=== PATIENT | female | born 1950 | race Caucasian/White ===

== ENCOUNTER → 2017-11-30 | Outpatient (CLI) | payer MEDICARE, BC | LOC: M.ULTRA 15:25 | DX: M79.605 Pain in left leg (principal); M79.89 Other specified soft tissue disorders; L53.9 Erythematous condition, unspecified; R60.0 Localized edema ==

== ENCOUNTER → 2018-09-22 | Outpatient (CLI) | payer MEDICARE, BC | LOC: M.RAD 13:53 | DX: Z12.31 Encounter for screening mammogram for malignant neoplasm of breast (principal); Z78.0 Asymptomatic menopausal state; M85.89 Other specified disorders of bone density and structure, multiple sites ==

== ENCOUNTER → 2018-09-22 | Outpatient (CLI) | payer OTHER | LOC: M.CT 13:45 | DX: Z13.6 Encounter for screening for cardiovascular disorders (principal); I25.10 Atherosclerotic heart disease of native coronary artery without angina pectoris ==

== ENCOUNTER → 2019-04-13 | Outpatient (CLI) | payer MEDICARE, BC | LOC: M.ULTRA 17:00 | DX: I82.812 Embolism and thrombosis of superficial veins of left lower extremity (principal); Z91.011 Allergy to milk products; Z88.8 Allergy status to other drugs, medicaments and biological substances ==

== ENCOUNTER → 2020-09-12 | Outpatient (CLI) | payer MEDICARE, BC ==
--- NOTE | 2020-09-16 17:33 | CARDNUC ---
[place] [address] CARDIAC NUCLEAR IMAGING REPORT Name: CARLO STEWART Room: [facility]#: [id number] Admission: 09/12/20 Attend Phys: aMrlon Caldera, Discharge: Date of : 52 Date of Service: 09/16/20 1733 Report #: [id number] THIS REPORT FOR: cc: Liss Martínez Linda J. DO Liston, Michael J. MD [facility] ~ APPROVED REPORT Imaging Protocol: Rest Tc-99m/Stress Tc-99m 1 day Study performed: 09/12/2020 11:50:21 Indication: Chest pain, FONTANA, fatique, edema, palpitations. Patient Location: Out-Patient Stress Tech: Monique Barahona Stress Nurse: Salud Puentes RN NM Tech:CHRISSY Schwab Ht: 5 ft 5 in Wt: 221 lbs BSA: 2.06 m2 BMI: 36.77 Medical History Medical History: CAD non obstructive, Chest pain, FONTANA, Edema, increased BMI, Insomnia, IVÁN, fatigue, palpitations, polyneuropathy, DM II-Insulin, Chronic Venous Stasis, Obesity, HTN, HLD, CHF, recent falls with injury, slow-unbalanced gait. Medications: Atorvastatin, HCTZ, Losartan, Mg Ox. Allergies: Metformin, Sulfa ABX, Dairy Aid (Lactose). Cardiac Risk Factors: Age, Diabetes (insulin), FHX of CAD, HTN, Hyperlipidemia, SOB, Edema, Obesity. Previous Cardiac Procedures: None Pretest Chest Pain Characteristics: No chest pain Exercise History: Indeterminate Physical Disabilities: Polyneuropathy, Chronic venous stasis, slow-unbalanced gait, recent falls with injury. Meds Held (24 hrs): None Resting Data Rest SPECT myocardial perfusion imaging was performed in supine position 30 minutes following the intravenous injection of 9.7 mCi of Tc-99m Sestamibi. Time of rest injection: 1010 Date: 09/12/2020 The images were gated to evaluate regional wall motion and calculate left ventricular ejection fraction. Administration Route: [place] [address] CARDIAC NUCLEAR IMAGING REPORT Name: CARLO STEWART [id number] Admission: 09/12/20 Attend Phys: Marlon Caldera, Discharge: Date of : 52 Date of Service: 09/16/20 1733 Report #: [id number] Administration Site: Right Arm Pharmacologic Stress Pharmacologic stress test was performed by injecting Regadenoson 0.4 mg IV push over 10-15 seconds immediately followed by the intravenous injection of 33.1 mCi of Tc-99m Sestamibi. Time of stress injection: 1145 Date: 09/12/2020 Administration Route: IV Administration Site: Right Arm Gated Stress SPECT was performed 40 minutes after stress injection. The images were gated to evaluate regional wall motion and calculate left ventricular ejection fraction. Prone imaging was performed. Stress Test Details Stress Test: Pharmacologic stress was paired with low level exercise. Reason for pharmacologic stress test: Polyneuropathy, Chronic venous stasis, slow-unbalanced gait, recent falls with injury.. HR Max Heart Rate (APMHR): 152 bpm Resting HR: 74 bpm Target HR (85% APMHR): 129 bpm Max HR Achieved: 117 bpm % of APMHR: 76 Recovery HR: 82 bpm BP Resting BP: 120/66 mmHg Max BP: 170/56 mmHg Recovery BP: 144/65 mmHg ECG Resting ECG: Sinus Rhythm Stress ECG: Sinus Tachycardia ST Change: None Arrhythmia: None Recovery ECG: Sinus Rhythm Recovery ST Change: None Recovery Arrhythmia: None Clinical Reason for Termination: Completed protocol Stress Symptoms: Dyspnea. Exercise duration: 4 min 00 sec Exercise capacity: 2.30 [place] [address] CARDIAC NUCLEAR IMAGING REPORT Name: CARLO STEWART Room: [facility]#: [id number] Admission: 09/12/20 Attend Phys: Marlon Caldera, Discharge: Date of : 52 Date of Service: 09/16/20 1733 Report #: [id number] The patient tolerated Lexiscan infusion without significant cardiac symptoms. Nurse Comments A 69 year old female presented for a walking Lexiscan r/t chest pain, increased dyspnea, CAD, CHF, fatigue. Test well tolerated. Recovery unremarkable. Patient was stable and stated she felt good while escorted to Nuclear Medicine for imaging. Stress ECG Conclusion Baseline twelve-lead EKG shows sinus rhythm without significant ST segment or T wave abnormality. EKGs obtained during and post Lexiscan infusion show sinus rhythm and sinus tachycardia with no significant ST segment or T wave changes when compared to baseline. There were no stress-induced arrhythmias. Study Quality Study: Good Artifact: Mild Breast artifact Study Data Post stress, the left ventricular ejection was 75%.. Perfusion Perfusion images obtained in the supine position at rest and post stress show mild photopenia in the mid to distal anterior wall that resolves completely with post-rest prone imaging suggesting breast attenuation artifact. No other significant fixed or reversible defects are identified. Wall Motion Normal left ventricular wall motion. Nuclear Conclusion ECG Findings: negative for ischemia Clinical Findings: negative for ischemia Nuclear Findings: negative for ischemia Exercise Capacity: not assessed Left Ventricular Function: normal Risk Study: low Perfusion images show no defect to suggest infarct or ischemia. Left ventricular systolic function appears normal on gated studies. This is a low risk study. <Conclusion> [place] [address] CARDIAC NUCLEAR IMAGING REPORT Name: CARLO STEWART Room: [facility]#: [id number] Admission: 09/12/20 Attend Phys: Marlon Caldera, Discharge: Date of : 52 Date of Service: 09/16/20 1733 Report #: [id number] Baseline twelve-lead EKG shows sinus rhythm without significant ST segment or T wave abnormality. EKGs obtained during and post Lexiscan infusion show sinus rhythm and sinus tachycardia with no significant ST segment or T wave changes when compared to baseline. There were no stress-induced arrhythmias. <ELECTRONICALLY SIGNED> By: Marlon Caldera MD, FACC 09/16/20 1733 [id number] Marlon Caldera MD, FACC /INF
== END ==
LOC: M.NUC 08-29 16:36
PROVIDERS: ATTEND Internal Medicine Cardiovascular Disease
DX: R00.0 Tachycardia, unspecified (principal); I25.10 Atherosclerotic heart disease of native coronary artery without angina pectoris; E11.9 Type 2 diabetes mellitus without complications; E78.5 Hyperlipidemia, unspecified; I11.9 Hypertensive heart disease without heart failure; I50.9 Heart failure, unspecified; Z88.8 Allergy status to other drugs, medicaments and biological substances; Z79.899 Other long term (current) drug therapy

== ENCOUNTER → 2021-05-26 | Outpatient (CLI) | payer MEDICARE, BC | LOC: M.CT 13:45 | PROVIDERS: ATTEND Nurse Practitioner Family | DX: K76.0 Fatty (change of) liver, not elsewhere classified (principal); R19.7 Diarrhea, unspecified; K57.92 Diverticulitis of intestine, part unspecified, without perforation or abscess without bleeding; R11.2 Nausea with vomiting, unspecified ==

== ENCOUNTER → 2021-07-04 | Outpatient (CLI) | payer MEDICARE, BC | LOC: M.SLEEPLAB 21:28 | PROVIDERS: ATTEND Internal Medicine Cardiovascular Disease | DX: G47.33 Obstructive sleep apnea (adult) (pediatric) (principal); G47.00 Insomnia, unspecified; I10 Essential (primary) hypertension; I25.10 Atherosclerotic heart disease of native coronary artery without angina pectoris ==